=== PATIENT | male | born 1980 | race Asian ===

== ENCOUNTER 2025-02-15 17:43 | Emergency (ER) | payer OTHER, SELFPAY ==
[2025-02-15 17:48] VITALS: BP 129/83
[2025-02-15 18:19] LABS: Hematocrit 40.5 % (39.0-52.0); Hemoglobin 14.0 g/dL (13.0-18.0); Mean Corp Hgb Conc. 34.6 g/dL (33.0-37.0); Mean Corpuscular Volume 85.3 fL (80.0-94.0); Nucleated Red Blood Cells % 0 % (-); Platelet Count 320 10^3/uL (130-400); Red Cell Dist. Width 12.4 % (11.5-14.5)
[2025-02-15 18:36] LABS: ALT (SGPT) 39 U/L (0-50); AST (SGOT) 28 U/L (17-59); Albumin 4.4 g/dl (3.5-5.0); Alkaline Phosphatase 52 U/L (38-126); Blood Urea Nitrogen 12 mg/dl (9-20); Calcium 9.1 mg/dl (8.4-10.2); Carbon Dioxide 25 mmol/L (22-30); Chloride 108 mmol/L (98-107); Glucose 96 mg/dl (70-99); Lipase 240 U/L (23-300); Potassium 4.1 mmol/L (3.5-5.1); Sodium 139 mmol/L (135-145); Total Protein 7.0 g/dl (6.3-8.2); eGFR > 60.00
[2025-02-15 19:23] VITALS: BP 127/90
[2025-02-15 19:54] VITALS: BMI 24.1
[2025-02-15 20:00] VITALS: BP 124/89
[2025-02-15 21:00] VITALS: BP 129/98
--- NOTE | 2025-02-15 21:48 | ED.GENMED ---
History of Present Illness
General
Chief Complaint: Abdominal Pain
Source: patient
Exam Limitations: none
Time Seen by Provider: 02/15/25 21:12
Nursing documentation reviewed up to this point in time: agreed with
History of Present Illness
History of Present Illness:
Patient is a 44-year-old male who presents to the ER for evaluation of diarrhea. Patient got back from [facility] February 07 and since then has had diarrhea. He reports he has had 2 episodes of diarrhea every day but denies any blood. He denies any
fever or chills. He denies any abdominal pain. His family was also away with him and they do not have symptoms.
Phy Exam
General Physical Exam
General Presentation: no apparent distress
General age: appears stated age
General Skin: warm and dry
General Habitus: normal
General Mental: alert
General Hydration: appears well hydrated
Gastrointestinal Exam
Gastrointestinal Exam: non tender and soft
Neurological Exam
Neurological Exam: alert and oriented x3
Musculoskeletal Exam
Musculoskeletal Exam: full ROM
Skin Exam
Skin Exam: normal color and warm/dry
Psychiatric Exam
Psychiatric Exam: normal mood/affect
Course
Orders/Labs/Results
Orders:
Orders
02/15/25 17:55
Electrocardiogram (*1) Urgent
Reason for Study: Abdominal Pain
EKG- Treatment ONCE
02/15/25 18:07
Complete Blood Count/With Diff Urgent
Comprehensive Metabolic Panel Urgent
Lipase Urgent
02/15/25 21:48
Stool Culture Urgent
GAGAN Source: Feces/Stool
Specimen Description:
02/15/25 21:51
UA Reflex to Culture [Urinalysis Reflex To Culture] Stat
Date Specimen was Collected: 02/15/25
Time Specimen was Collected: 21:49
Abnormal Lab Results
02/15/25
18:07
Chloride 108 H mmol/L
(98-107)
02/15/25 18:07
02/15/25 18:07
Vital Signs
Initial and Last Documented VS:
Initial Vital Signs
Temp Pulse Resp BP Pulse Ox
98.5 F 70 16 129/83 98
02/15/25 17:48 02/15/25 17:48 02/15/25 17:48 02/15/25 17:48 02/15/25 17:48
Last Documented Vital Signs
Temp Pulse Resp BP Pulse Ox
98.5 F 62 23 129/98 96
02/15/25 17:48 02/15/25 22:15 02/15/25 22:15 02/15/25 21:00 02/15/25 22:15
MDM/Problems Addressed
Differential Diagnosis Includes:
Not limited to viral colitis, infectious diarrhea traveler's diarrhea
MDM/Problems Addressed:
As documented patient is a 44-year-old male who was had diarrhea, 2 episodes of diarrhea daily since February 07 since getting back from [facility]. No associated blood or fevers no abdominal pain. He is awake alert no acute distress afebrile here with
a normal white count unremarkable labs normal chemistries.
Patient is very well-appearing he was not able to give a stool specimen here in the ER will hold off on antibiotics and give patient prescription for outpatient lab slip for stool culture discussed close outpatient follow with PCP. Discussed bland
diet
*Pulse Oximetry
SaO2: 98
Oxygen Mode of Delivery: Room air
Patient hypoxic: no
*Critical Care Note
Total Time (30-74mins, 75-104mins- exclusive of procedures): Not Applicable
ED Attending Note
-
Portions of this chart may have been created with voice recognition software.� Occasional wrong word or��sound alike� substitutions may have occurred due to the inherent limitations of voice recognition software.
Discharge Plan
Departure
Patient Disposition: Home (Routine Discharge)
Date of Disposition: 02/15/25
Time of Disposition: 23:03
Patient with high blood pressure during this ER visit?: Yes
Condition: Fair
Covid-19: Not Applicable
Discharge Problem:
Diarrhea
Instructions: Diarrhea in teens and adults
Referrals:
Namita Jewell DO [Family Provider, Family Practice]
Activity Restrictions/Additional Instructions:
As discussed please follow-up with your family doctor for reevaluation in the next 2 days. You were given a lab slip to provide a stool culture. You may bring to [place] lab. [place] diet. Return if any worsening of symptoms including bloody
diarrhea fever chills or abdominal pain.
Interventions
Interventions:
*Risk Screen - Suicide Last Done: 02/15/25 17:48
*General Assessment Last Done: 02/15/25 20:00
*Neglect/Abuse Screening Last Done: 02/15/25 17:48
*ED- Fall Risk Assessment Last Done: 02/15/25 17:48
*ED COVID-19 Vaccine History Last Done: 02/15/25 20:00
FF-Cozjbp-Krklvbvcdq Assessment Last Done: 02/15/25 19:54
Discharge Date and Time
Print Language: MONGOLIAN
[2025-02-15 22:12] LABS: Urine Character Clear (Clear)
== END 2025-02-15 23:45 | disposition home or self-care (01) ==
LOC: EMR 17:43
PROVIDERS: Emergency Medicine; Nurse Practitioner; EMERGENCY PHYSICIAN Emergency Medicine; FAMILY PHYSICIAN Family Medicine
DX: R19.7 Diarrhea, unspecified (principal); R10.9 Unspecified abdominal pain
CPT/HCPCS: 99283; 80053; 81003; 83690; 85025; 93005

== ENCOUNTER → 2025-02-17 11:39 | Outpatient (REF) | payer OTHER, SELFPAY | LOC: REG 11:39 | PROVIDERS: ATTENDING PHYSICIAN Nurse Practitioner; FAMILY PHYSICIAN Family Medicine; REFERRING PHYSICIAN Internal Medicine | DX: R19.7 Diarrhea, unspecified (principal) | CPT/HCPCS: 87045; 87046; 87427 ==

== ENCOUNTER 2025-05-14 06:32 | Day surgery (SDC) | payer OTHER, SELFPAY | END 2025-05-14 14:16 | disposition home or self-care (01) | LOC: GI 06:32 | PROVIDERS: ATTENDING PHYSICIAN Internal Medicine Gastroenterology | DX: R10.13 Epigastric pain (principal); R68.81 Early satiety; K44.9 Diaphragmatic hernia without obstruction or gangrene; K21.00 Gastro-esophageal reflux disease with esophagitis, without bleeding; K31.89 Other diseases of stomach and duodenum; Z86.19 Personal history of other infectious and parasitic diseases | CPT/HCPCS: 43239; 88305; 88341; 88342 ==